=== PATIENT | male | born 1995 | race Caucasian/White ===

== ENCOUNTER 2016-10-10 02:55 | Emergency (ER) | payer SELFPAY ==
[~2016-10-10] VITALS: Ht 165.1 cm; Wt 88.0 kg
--- NOTE | 2016-10-10 02:55 | NUR ---
BIB [facility] TO ER OF1
[2016-10-10 03:06] VITALS: BP 110/44
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
--- NOTE | 2016-10-10 04:12 | NUR ---
Patient being evaluated by physician.
[2016-10-10 04:24] VITALS: BP 116/49
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
== END 2016-10-10 04:23 ==
LOC: MED 02:55
DX: Z02.89 Encounter for other administrative examinations (principal); S09.90XA Unspecified injury of head, initial encounter; V89.2XXA Person injured in unspecified motor-vehicle accident, traffic, initial encounter; Y93.89 Activity, other specified; Y92.89 Other specified places as the place of occurrence of the external cause; Y99.8 Other external cause status
CPT/HCPCS: 99283